=== PATIENT | female | born 1950 | race Caucasian/White ===

== ENCOUNTER 2018-09-26 12:23 | Emergency (ER) | payer MEDICARE, BC ==
[~2018-09-26] VITALS: Wt 91.5 kg
[~2018-09-26 12:23] MED LIST: ACEB200C PO; AMLO-147 PO; CITA10TA5 PO; FERR-55 PO; LORA-444 PO; LOSA1TAB9 PO; MTF1000T PO; SAXA5TAB2 PO
[2018-09-26] MEDS ORDERED: ONDANSETRON 4 MG INJ IV STA (14:02)
[2018-09-26] MEDS ORDERED: SOD CHLORIDE 0.9% 1,000 ML IV STA (14:02)
[2018-09-26] MEDS ORDERED: CEPH-443 PO ×2 (15:52→15:57)
[2018-09-26] MEDS ORDERED: ALBU18HF INHALATION (15:52)
[2018-09-26] MEDS ORDERED: BENZ-6 PO (15:52)
[2018-09-26 16:06] VITALS: BP 158/72; PULSE 92; RESP 16
--- NOTE | 2018-09-30 12:34 | ERD ---
ER Documentation Chief Complaint Chief Complaint cough x 1 month HPI 68-year-old female patient with a past history of insomnia presents the ED complaining of cough, sore throat, weak, inability to sleep. Reports she has not taking her medications. Reports that she has not followed up with her primary care physician. States that she takes medication for her hypertension as well as metformin. Denies any chest pain, shortness of breath, nausea, vomiting, diarrhea, neck stiffness. Denies any dyspnea on exertion, orthopnea. ROS All systems reviewed and are negative except as per history of present illness. Medications Home Meds Active Scripts Cephalexin* (Keflex*) 500 Mg Capsule, 500 MG PO BID for 7 Days, CAP Prov:KAILEY PRUITT PA-C 09/26/18 Albuterol Sulfate* (Ventolin HFA*) 18 Gm Hfa.aer.ad, 2 PUFF INHALATION Q4H, #1 INHALER Prov:KAILEY PRUITT PA-C 09/26/18 Benzonatate* (Tessalon Perle*) 100 Mg Capsule, 100 MG PO Q8H PRN for COUGH, #30 CAP Prov:KAILEY PRUITT PA-C 09/26/18 Reported Medications Lorazepam* (Ativan*) 2 Mg Tablet, 1 MG PO QHS, TAB 02/07/14 Citalopram Hydrobromide* (Citalopram Hydrobromide*) 10 Mg Tablet, 10 MG PO DAILY 03/07/11 Amlodipine Besylate* (Amlodipine Besylate*) 10 Mg Tablet, 10 MG PO DAILY 03/07/11 Saxagliptin Hcl* (Onglyza*) 5 Mg Tablet, 5 MG PO DAILY 03/07/11 Metformin* (Glucophage*) 1,000 Mg Tablet, 1000 MG PO DAILY 03/07/11 Losartan-Hydrochlorothiazide (Hyzaar) 1 Tab Tablet, 100 MG PO DAILY 03/07/11 Ferrous Sulfate* (Ferrous Sulfate*) 325 Mg Tablet, 325 MG PO DAILY 03/07/11 Acebutolol Hcl (Acebutolol Hcl) 200 Mg Capsule, 200 MG PO BID 03/07/11 Allergies Allergies: Coded Allergies: No Known Drug Allergies (Verified Allergy, Unknown, 02/07/14) PMhx/Soc History of Surgery: No Anesthesia Reaction: No Hx Neurological Disorder: No Hx Respiratory Disorders: No Hx Cardiac Disorders: Yes (HTN) Hx Psychiatric Problems: No Hx Miscellaneous Medical Probl: Yes (High cholesterol) Hx Alcohol Use: No Hx Substance Use: No Hx Tobacco Use: No Smoking Status: Never smoker FmHx Family History: No diabetes, No coronary disease Physical Exam Vitals Physical Exam Const: [id number], well-nourished. In no acute distress. Head: Atraumatic, normocephalic. Eyes: Normal Conjunctiva without injection. No purulent discharge. PERRL. EOMI ENT: Normal external ear. Ear canal without erythema. Tympanic membrane pearly schmidt without effusion or bulging. Nasal canal clear with normal turbinates. Moist oropharynx without tonsillar exudates. Non-erythematous pharynx. Uvula midline. No drooling. No trismus. Neck: Full range of motion. No meningismus. No cervical lymphadenopathy. Resp: Clear to auscultation bilaterally. No wheezing, rhonchi, rales, or crackles. No accessory muscle use. No retractions. Cardio: Regular rate and rhythm. No murmurs, rubs or gallops. Abd: Soft, non tender, non distended. Normal bowel sounds. No palpable masses. No rebound tenderness. No guarding. Skin: No petechiae or rashes Back: No midline tenderness. No CVA tenderness. Ext: No cyanosis, or edema. Neur: Awake and alert. Psych: Normal Mood and Affect Results 24 hrs Laboratory Tests Test 09/26/18 14:20 09/26/18 14:22 White Blood Count 7.3 10^3/ul Red Blood Count 3.62 10^6/ul Hemoglobin 9.7 g/dl Hematocrit 31.2 % Mean Corpuscular Volume 86.2 fl Mean Corpuscular Hemoglobin 26.8 pg Mean Corpuscular Hemoglobin Concent 31.1 g/dl Red Cell Distribution Width 14.6 % Platelet Count 169 10^3/UL Mean Platelet Volume 10.6 fl Immature Granulocytes % 0.600 % Neutrophils % 51.6 % Lymphocytes % 33.6 % Monocytes % 9.0 % Eosinophils % 4.1 % Basophils % 1.1 % Nucleated Red Blood Cells % 0.3 /100WBC Immature Granulocytes # 0.040 10^3/ul Neutrophils # 3.8 10^3/ul Lymphocytes # 2.4 10^3/ul Monocytes # 0.7 10^3/ul Eosinophils # 0.3 10^3/ul Basophils # 0.1 10^3/ul Nucleated Red Blood Cells # 0.0 10^3/ul Urine Color YELLOW Urine Clarity SLIGHTLY CLOUDY Urine pH 5.0 Urine Specific [place] 1.023 Urine Ketones TRACE mg/dL Urine Nitrite NEGATIVE mg/dL Urine Bilirubin NEGATIVE mg/dL Urine Urobilinogen 1+ mg/dL Urine Leukocyte Esterase TRACE Marlon/ul Urine Microscopic RBC 1 /HPF Urine Microscopic WBC 6 /HPF Urine Bacteria FEW /HPF Urine Mucus MODERATE /HPF Urine Hemoglobin 1+ mg/dL Urine Glucose NEGATIVE mg/dL Urine Total Protein 2+ mg/dl Sodium Level 138 mmol/L Potassium Level 3.9 mmol/L Chloride Level 101 mmol/L Carbon Dioxide Level 26 mmol/L Anion Gap 11 Blood Urea Nitrogen 15 mg/dl Creatinine 1.09 mg/dl Est Glomerular Filtrat Rate mL/min 50 mL/min Glucose Level 181 mg/dl Calcium Level 9.4 mg/dl Total Bilirubin 0.3 mg/dl Direct Bilirubin 0.00 mg/dl Indirect Bilirubin 0.3 mg/dl Aspartate Amino Transf (AST/SGOT) 46 IU/L Alanine Aminotransferase (ALT/SGPT) 10 IU/L Alkaline Phosphatase 126 IU/L Total Protein 8.2 g/dl Albumin 4.0 g/dl Globulin 4.20 g/dl Albumin/Globulin Ratio 0.95 Lipase 198 U/L Bedside Glucose 169 mg/dL Current Medications Medications Dose Sig/Moni Start Time Status Last (Trade) Ordered Route PRN Stop Time Admin Dose Reason Admin Sodium 1,000 ml @ Q1H STAT 09/26/18 DC 09/26/18 Chloride 1,000 mls/hr IV 14:02 14:17 09/26/18 15:01 Ondansetron 4 mg ONCE STAT 09/26/18 DC 09/26/18 HCl (Zofran IV 14:02 14:17 Inj) 09/26/18 14:04 Procedures/MDM 68-year-old female patient with a past medical history of diabetes, hypertension presents the ED complaining of cough, sore throat, weakness. Patient is afebrile and nontoxic-appearing. Patient's blood pressure is 157/65. Blood Pressure Assessment: Patient's blood pressure was elevated (>120/80) but appears stable without evidence of hypertension emergency or urgency. The patient was counseled about the risks of hypertension and urged to pursue outpatient monitoring and therapy within a week with their primary care physician. CBC: No leukocytosis. No e/o of systemic infection. No e/o anemia. CMP: No e/o severe acidosis, alkalosis, renal failure, diabetic ketoacidosis, liver disease Lipase within normal limits. Urine: Trace leukocyte esterase, no nitrites, no hematuria. IMPRESSION: 1. The heart is upper normal in size with the pulmonary vasculature unremarkable. 2. Suboptimal inspiration with no discrete infiltrate, nodule, effusion, or pneumothorax evident. 3. 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 Patient will be treated for her urinary tract infection as well as viral upper respiratory infection. Low suspicion for acute myocardial infarction, pneumothorax, pericarditis, myocarditis, endocarditis, pneumonia, cardiac tamponade, pulmonary embolism, pleural effusion, AAA, aortic dissection, Boerhaave's syndrome, cardiac dysrhythmias,meningitis, intracranial bleed, seizure, stroke, TIA or other emergent conditions. Low suspicion for ectopic , ovarian torsion, gastritis, GERD, peptic ulcer disease, cholecystitis, choledocholithiasis, cholangitis, pancreatitis, appendicitis, bowel obstruction, ileus, volvulus, nephrolithiasis, pyelonephritis, hepatitis, perforated viscus, diverticulitis, strangulated/incarcerated hernia, DKA, acute abdomen, mesenteric ischemia or other emergent conditions. Discussed with patient's case with Dr. Lindo, who agreed with the management discharge plan. Diagnosis: Cough, Decreased appetite Discharge medications: Keflex, Ventolin, Tessalon Perles Follow up with primary care physician in 1-2 days. Instructed patient to return to the ED sooner for any worsening symptoms. Patient's questions were answered. Patient is hemodynamically stable. Patient understood and agreed with discharge plan. Patient discharged stable. Disclaimer: Inadvertent spelling and grammatical errors are likely due to EHR/dictation software use and do not reflect on the overall quality of patient care. Also, please note that the electronic time recorded on this note does not necessarily reflect the actual time of the patient encounter. Departure Diagnosis: Primary Impression: Cough Additional Impression: Decreased appetite Condition: Stable Patient Instructions: Urinary Tract Infections in Women, Treating Insomnia, Cough, Chronic, Uncertain Cause, (Adult), Creatinine (Blood) Referrals: [facility] YOU HAVE RECEIVED A MEDICAL SCREENING EXAM AND THE RESULTS INDICATE THAT YOU DO NOT HAVE A CONDITION THAT REQUIRES URGENT TREATMENT IN THE EMERGENCY DEPARTMENT. FURTHER EVALUATION AND TREATMENT OF YOUR CONDITION CAN WAIT UNTIL YOU ARE SEEN IN YOUR DOCTORS OFFICE WITHIN THE NEXT 1-2 DAYS. IT IS YOUR RESPONSIBILITY TO MAKE AN APPOINTMENT FOR FOLOW-UP CARE. IF YOU HAVE A PRIMARY DOCTOR --you should call your primary doctor and schedule an appointment IF YOU DO NOT HAVE A PRIMARY DOCTOR YOU CAN CALL OUR PHYSICIAN REFERRAL HOTLINE AT IF YOU CAN NOT AFFORD TO SEE A PHYSICIAN YOU CAN CHOSE FROM THE FOLLOWING [facility] [address] [facility]. [facility] [address] [facility] [address] [facility] [address] [facility] [facility] [address] [facility]. [facility] [address] [facility]. [facility] YOU HAVE RECEIVED A MEDICAL SCREENING EXAM AND THE RESULTS INDICATE THAT YOU DO NOT HAVE A CONDITION THAT REQUIRES URGENT TREATMENT IN THE EMERGENCY DEPARTMENT. FURTHER EVALUATION AND TREATMENT OF YOUR CONDITION CAN WAIT UNTIL YOU ARE SEEN IN YOUR DOCTORS OFFICE WITHIN THE NEXT 1-2 DAYS. IT IS YOUR RESPONSIBILITY TO MAKE AN APPOINTMENT FOR FOLOW-UP CARE. IF YOU HAVE A PRIMARY DOCTOR --you should call your primary doctor and schedule and appointment IF YOU DO NOT HAVE A PRIMARY DOCTOR YOU CAN CALL OUR PHYSICIAN REFERRAL HOTLINE AT . IF YOU CAN NOT AFFORD TO SEE A PHYSICIAN YOU CAN CHOSE FROM THE FOLLOWING [facility]: [facility] [address] [place] [address] [facility] [address] [place] [address] [facility] [address] [place] [address] [facility] URGENT [facility]/SPECIALTIES Additional Instructions: Call your primary care doctor TOMORROW for an appointment during the next 2-3 days for a referral to see a reinforcing steel erector for further evaluation and treatment, colonoscopy, and obtain a sleep study.See the doctor sooner or return here if your condition worsens before your appointment time. KAILEY PRUITT PA-C September 30, 2018 12:33 JENNIFER LINDO MD October 04, 2018 12:05
== END 2018-09-26 16:10 | disposition home or self-care (01) ==
LOC: FTE 12:23
DX: R05 Cough (principal); R63.0 Anorexia; I10 Essential (primary) hypertension
CPT/HCPCS: 71045; 80053; 81001; 82962; 83690; 85025; J2405; J7030; 36415; 96361; 96374